=== PATIENT | female | born 1945 | race Caucasian/White ===

== ENCOUNTER 2024-02-19 22:26 | Inpatient (IN) ==
[2024-02-19 22:54] LABS: ABS Basophils 0.1 10^3/uL (0.0-0.1); ABS Eosinophils 0.1 10^3/uL (0.0-0.5); ABS Lymphocytes 1.7 10^3/uL (1.0-4.8); ABS Monocytes 0.6 10^3/uL (0.0-0.9); ABS Neutrophils 9.7 10^3/uL (1.5-7.6); ABS Nucleated RBC 0.01 10^3/ul; Eosinophil % 0.8 %; Hematocrit 41.4 % (35-45); Hemoglobin 14.1 g/dL (11.5-14.3); Mean Platelet Volume 7.9 fL (7.5-11.2); Nucleated Red Blood Cells % 0.1 %/100WBC (0.0-0.8); Platelet Count 260 10^3/uL (150-450); Red Blood Count 4.27 10^6/uL (3.63-4.92); Red Cell Distribution Width 12.8 % (12-17); White Blood Count 12.2 10^3/uL (3.8-11.8)
[2024-02-19] MEDS: Iodixanol (CONTRAST) 320 MG/ML 100 ML SDV IV ONE (23:04)
[2024-02-19] MEDS: Ondansetron 4 mg VIAL 2 MG/ML 2 ml VIAL IV ONE (23:09)
[2024-02-19] MEDS: levETIRAcetam 1000MG IVPREMIX 1,000 MG/100 ML BAG IVPB ONE (23:09)
[2024-02-19 23:11] LABS: Activated Partial Thrombo Time 25.5 seconds (26.0-38.0); INR 0.94 (0.85-1.14)
[2024-02-19] MEDS: niCARdipine 0.1MG/ML IVPREMIX 20 MG/200 ML BAG IV SCH (23:16)
[2024-02-19] MEDS ORDERED: niCARdipine 0.1MG/ML IVPREMIX 20 MG/200 ML BAG IV ONE (23:16)
[2024-02-20 00:04] LABS: Albumin 4.6 g/dL (3.2-5.2); Albumin/Globulin Ratio 1.6 (1-3); Calcium 10.1 mg/dL (8.6-10.3); Creatinine, Serum 0.79 mg/dL (0.51-0.95); Direct Bilirubin 0.1 mg/dL (0.03-0.18); Globulin 2.9 g/dL (2-4); HDL Cholesterol 79.2 mg/dL; Indirect Bilirubin 0.6 mg/dL (0.3-1.0); Potassium 4.2 mmol/L (3.5-5.0); Total Bilirubin 0.7 mg/dL (0.2-1.0); Total Protein 7.5 g/dL (6.4-8.9); eGFR CKD-EPI 76.5 (>60)
[2024-02-20] MEDS ORDERED: Ondansetron 4 mg VIAL 2 MG/ML 2 ml VIAL IV PRN (00:25)
[2024-02-20] MEDS ORDERED: LORazepam 2 MG/ML 1 mL Syringe IV PRN (00:30)
[2024-02-20 09:32] VITALS: BP 115/53
[2024-02-21] MEDS: LORazepam 2 mg VIAL 1 ml IV PUSH PRN ×2 (06:16→22:35)
[2024-02-21] MEDS: Morphine 2 MG/ML SYRINGE IV PRN (08:38)
[2024-02-21] MEDS: Atropine 1% (ORAL/SL) 15 ML BTL SL PRN (17:20)
== END 2024-02-25 05:39 | disposition expired | DRG 64 ==
LOC: ED 22:26 → EDHOLD 02-20 00:31 → SUATTDRO 02-20 00:31 → MED 02-20 08:13
PROVIDERS: ADMIT Internal Medicine; ATTEND Student in an Organized Health Care Education/Training Program